=== PATIENT | female | born 1950 | race Caucasian/White ===

== ENCOUNTER 2022-03-03 11:53 | Emergency (ER) | payer OTHER ==
[~2022-03-03] VITALS: Ht 162.6 cm; Wt 75.5 kg
[2022-03-03 12:02] VITALS: BP 160/74
--- NOTE | 2022-03-03 12:05 | NUR ---
PT AMBULATED TO BED 11.
--- NOTE | 2022-03-03 12:11 | NUR ---
71 Y/O FEMALE BIB DAUGHTER FOR MEDICATION REFILLS. PT ADDED THAT SHE HAD A MECHANICAL FALL WITH OUTSTRETCHED HANDS AND STATES HER LEFT HAND HAS A SHARP PAIN RADIATING TO HER WHOLE LEFT ARM. LEFT HAND HAS SOME SWELLING AND NO BRUISING NOTED. PT DENIES ANY TRAUMA TO HEAD OR LOC DURING THE FALL. PMHX: HTN/DM/THROID DISEASE ALLERGIES: DENIES
[2022-03-03] MEDS ORDERED: LANTUS SUBQ (13:00)
[2022-03-03] MEDS ORDERED: HUM SUBQ (13:00)
[2022-03-03] MEDS ORDERED: LISI40TA8 PO (13:00)
[2022-03-03] MEDS ORDERED: PEN-124 SUBQ (13:00)
[2022-03-03 13:12] VITALS: BP 149/70
--- NOTE | 2022-03-03 13:12 | NUR ---
Patient discharged with v/s stable. Written and verbal after care instructions given and explained with teachback. Patient alert, oriented and verbalized understanding of instructions. Ambulatory with steady gait. All questions addressed prior to discharge. ID band removed. Patient advised to follow up with PMD. Rx of insulin lispro/glargine/lisinopril/ pen needles given. Patient educated on indication of medication including possible reaction and side effects. Opportunity to ask questions provided and answered.
== END 2022-03-03 13:12 | disposition home or self-care (01) ==
LOC: MED 11:53
DX: S60.222A Contusion of left hand, initial encounter (principal); E11.9 Type 2 diabetes mellitus without complications; I10 Essential (primary) hypertension; I25.10 Atherosclerotic heart disease of native coronary artery without angina pectoris; Z79.4 Long term (current) use of insulin; Z76.0 Encounter for issue of repeat prescription; Z90.89 Acquired absence of other organs; W18.30XA Fall on same level, unspecified, initial encounter; Y93.89 Activity, other specified; Y92.89 Other specified places as the place of occurrence of the external cause; Y99.8 Other external cause status
CPT/HCPCS: 73130; 99283; Q0092